=== PATIENT | male | born 1945 | race Caucasian/White ===

== ENCOUNTER 2016-06-24 06:42 | Outpatient (CLI) | payer MEDICARE ==
[2016-06-24 07:12] LABS: #Basophils 0.1 thou/uL (0.0-0.2); #Eosinphils 0.1 thou/uL (0.0-0.7); #Lymphocytes 1.7 thou/uL (1.20-3.40); #Monocytes 0.7 thou/uL (0.11-0.59); #Neutrophils 4.5 thou/uL (1.40-6.50); %Basophils 0.8 % (0.0-1.0); %Eosinophils 1.7 % (0.0-10.0); %Lymphocytes 24.1 % (21.0-51.0); %Monocytes 10.3 % (0.0-10.0); %Neutrophils 63.2 % (42.0-75.0); Large Platelets SLIGHT; MDiff Complete? YES; Macrocytosis SLIGHT = 6-15 cells (100X) (0-5/hpf); Mean Corpuscular HGB CONC 35.3 g/dL (32.0-36.0); Mean Corpuscular Hemoglobin 34.9 pg (27.0-31.0); Mean Platelet Volume 12.6 fL (7.4-10.4); Platelet Count 157 thou/uL (130-400); RBC Distribution Width 12.8 % (11.5-14.5); Red Blood Cell (RBC) Count 4.29 mill/uL (4.70-6.10); White Blood Cell (WBC) Count 7.2 thou/uL (4.8-10.8)
[2016-06-24 07:20] LABS: Hemoglobin A1c 6.7 % (4.0-6.0)
[2016-06-24 07:35] LABS: ALT (SGPT) 49 U/L (0-55); AST (SGOT) 35 U/L (5-34); Albumin 4.2 g/dL (3.4-4.8); Alkaline Phosphatase 77 U/L (40-150); Anion Gap 19 mmol/L (10-20); BUN (Urea Nitrogen) 16 mg/dL (8.4-25.7); Bilirubin, Direct 0.1 mg/dL (0.1-0.3); Bilirubin, Total Less than 0.3 mg/dL (0.2-1.2); Calc. Creatinine Clearance 0 mL/min (70-130); Calcium 9.6 mg/dL (7.8-10.44); Carbon Dioxide 21 mmol/L (23-31); Cardiac Risk 4.7 (Less than 4.5); Chloride 106 mmol/L (98-107); Cholesterol 164 mg/dL (< 200 Desired); Estimated GFR-MDRD 87; Glucose 135 mg/dL (80-115); HDL Cholesterol 35 mg/dL (>60 Neg Risk); LDL Cholesterol, Calculated 72 mg/dL; Protein, Total 6.8 g/dL (5.8-8.1); Sodium 142 mmol/L (136-145); Triglycerides 287 mg/dL (Less than 150)
[2016-06-24 08:21] LABS: Thyroid Stimulating Hormone 0.8462 uIU/mL (0.35-4.94)
[2016-06-24 17:43] LABS: Creatinine, Urine 209.73 mg/dL (63-166); Microalbumin Urine 1.6 mg/dL (0.5-50.0); Microalbumin/Creat Ratio 7.6 mg/g (Less than 30)
== END 2016-06-24 06:43 ==
LOC: MADLAB 06:42
PROVIDERS: ATTEND Family Medicine
DX: E78.5 Hyperlipidemia, unspecified (principal); E66.9 Obesity, unspecified
CPT/HCPCS: 36415; 80048; 80061; 80076; 82043; 82570; 83036; 84153; 84443; 85025

== ENCOUNTER 2016-07-29 15:31 | Outpatient (CLI) | payer MEDICARE ==
[2016-07-29 15:53] LABS: Bilirubin Negative (Negative); Blood, Urine Moderate (Negative); Glucose, Urine (Dipstick) Negative (Negative); Leukocyte Large (Negative); Nitrite Positive (Negative); Protein, Urine (Dipstick) 30 mg/dL (Neg-Trace); Specific Gravity, Urine 1.025 (1.005-1.030)
[2016-07-29 15:57] LABS: Bacteria/HPF 2+ HPF (None Seen); Clarity Cloudy (Clear); Squamous Epithelial 0-3 HPF (0-3); WBC/HPF 21-50 HPF (0-3); Yeast-All Forms 1+ HPF (None Seen)
[2016-07-29 15:58] LABS: Other Microscopic Description C&S SET UP
== END 2016-07-29 15:32 ==
LOC: MADLABBHPM 15:31
PROVIDERS: ATTEND Family Medicine
DX: E78.5 Hyperlipidemia, unspecified (principal)
CPT/HCPCS: 81001; 87077; 87086; 87186

== ENCOUNTER 2016-10-21 11:03 | Outpatient (CLI) | payer MEDICARE ==
[2016-10-21 11:37] LABS: Hemoglobin A1c 6.5 % (4.0-6.0)
[2016-10-21 11:41] LABS: Clarity Clear (Clear)
[2016-10-21 11:43] LABS: ALT (SGPT) 31 U/L (8-55); AST (SGOT) 19 U/L (5-34); Albumin 4.2 g/dL (3.4-4.8); Alkaline Phosphatase 69 U/L (40-150); Anion Gap 14 mmol/L (10-20); BUN (Urea Nitrogen) 19 mg/dL (8.4-25.7); Bilirubin Negative (Negative); Bilirubin, Direct 0.1 mg/dL (0.1-0.3); Bilirubin, Total 0.3 mg/dL (0.2-1.2); Blood, Urine Small (Negative); Calc. Creatinine Clearance 0 mL/min (70-130); Calcium 9.8 mg/dL (7.8-10.44); Carbon Dioxide 22 mmol/L (23-31); Cardiac Risk 5.3 (Less than 4.5); Chloride 104 mmol/L (98-107); Cholesterol 191 mg/dl (< 200 Desired); Estimated GFR-MDRD Greater than 90; Glucose 115 mg/dL (83-110); Glucose, Urine (Dipstick) Negative (Negative); HDL Cholesterol 36 mg/dL (>60 Neg Risk); LDL Cholesterol, Calculated 104 mg/dL; Leukocyte Negative (Negative); Nitrite Negative (Negative); Potassium 4.1 mmol/L (3.5-5.1); Protein, Total 6.8 g/dL (5.8-8.1); Protein, Urine (Dipstick) Negative (Neg-Trace); Sodium 136 mmol/L (136-145); Specific Gravity, Urine 1.026 (1.002-1.036); Triglycerides 254 mg/dL (Less than 150); Urobilinogen 0.2 mg/dL (0.2-1.0)
[2016-10-21 11:44] LABS: Bacteria/HPF Rare-Few HPF (None Seen); WBC/HPF 0-3 HPF (0-3)
== END 2016-10-21 11:04 ==
LOC: MADLABBHPM 11:03
PROVIDERS: ATTEND Family Medicine
DX: E78.5 Hyperlipidemia, unspecified (principal); E11.9 Type 2 diabetes mellitus without complications; I10 Essential (primary) hypertension
CPT/HCPCS: 36415; 80048; 80061; 80076; 81001; 83036; 87086